=== PATIENT | male | born 1970 | race Caucasian/White ===

== ENCOUNTER 2017-02-17 12:39 | Day surgery (SDC) | payer BC ==
[~2017-02-17 12:39] MED LIST: ACETAMINOPHEN 1,000 MG/100 ML BTL IV ONE; CEFAZOLIN 2 Gram 2 GM/50 ML BAG IVPB ONE; FAMOTIDINE 20MG TABLET PO ONE; MECLIZINE 25 MG TABLET PO ONE; METOCLOPRAMIDE 10 MG TABLET PO ONE
[2017-02-17] MEDS ORDERED: MORPHINE SULFATE 5 MG/ML PFS IVP ONE (12:40)
[2017-02-17] MEDS ORDERED: ROCURONIUM BROMIDE 50MG/5ML VIAL IV ONE (12:40)
[2017-02-17] MEDS ORDERED: BUPIVACAINE 0.75% W/EPI MPF 30ML VIAL IVP ONE (12:40)
[2017-02-17] MEDS ORDERED: LIDOCAINE 2% MDV (20MG/ML) 20ML VIAL IV ONE (12:40)
[2017-02-17] MEDS ORDERED: SEVOFLURANE 250 ML INH ONE (12:40)
[2017-02-17] MEDS ORDERED: PROPOFOL 10 MG/ML VIAL IV ONE (12:40)
[2017-02-17] MEDS ORDERED: SUGAMMADEX SODIUM 200 MG/2 ML VIAL IV ONE (12:40)
[2017-02-17 12:59] LABS: HEMATOCRIT 44.9 % (42.0-52.0); HEMOGLOBIN 15.9 gm/dl (14.0-18.0); MEAN CELL VOLUME 87.2 fl (81-97); MEAN CORPUSCULAR HEMOGLOBIN 30.9 pg (27-33); MEAN CORPUSCULAR HGB CONC 35.4 g/dl (32-36); MEAN PLATELET VOLUME 10.2 fl (7.4-10.4); PLATELET COUNT 264 K/uL (130-400); RED BLOOD COUNT 5.15 M/uL (4.40-5.70); RED CELL DISTRIBUTION WIDTH 12.7 % (11.5-14.5); WHITE BLOOD COUNT W/O DIFF 6.7 K/uL (4.2-12.2)
[2017-02-17 13:15] LABS: BLOOD UREA NITROGEN 16 mg/dL (6-20); CREATININE 0.8 mg/dL (0.7-1.2); EST GLOMERULAR FILTRATION RATE > 60 mL/min; GLUCOSE,RANDOM 317 mg/dL (74-109)
--- NOTE | 2017-02-21 14:10 | Operative Note ---
DATE OF SURGERY: 02/17/2017 REFERRING PROVIDER: Isacc Hawkins DO PREOPERATIVE DIAGNOSIS: Incarcerated umbilical hernia. POSTOPERATIVE DIAGNOSIS: Incarcerated umbilical hernia. OPERATION: Open umbilical herniorrhaphy with mesh. DESCRIPTION: Patient is a 46-year-old male with pain and bulging in his periumbilical region. He was brought to the operating room and placed in the supine position where general anesthesia was administered per Department of Anesthesia. PROCEDURE: Patient's abdomen was prepped and draped in the usual sterile fashion. Adequate timeout was preformed. He did receive preoperative antibiotic. At this time, periumbilical region was anesthetized with a total of 5 mL of 0.25% Sensorcaine with epinephrine. A 4 cm curvilinear infraumbilical incision was made. This was carried down to the anterior rectus fascia. The umbilical stalk was encircled and dissected free from underlying hernia sac. Clean circumferential fascial edges were obtained. Patient had an incarcerated hernia containing fat. The sac was amputated and passed off the field. Hernia measured about 1.5 cm. At this time, an [address] mesh was obtained. This was placed in the intraperitoneal position. Sutures went in 6 spots. The tails overlapped the fascia where sutures were placed as well. At this time, the skin was tacked back down with 3-0 Vicryl, 4-0 Vicryl was then used to close the skin. Patient was then taken to the recovery room in satisfactory condition. FINDINGS AT TIME OF SURGERY: Incarcerated umbilical hernia repaired as above. CC: Isacc Hawkins DO [facility] CENTERMarcel
== END 2017-02-17 16:05 | disposition home or self-care (01) ==
LOC: SUR 12:39
PROVIDERS: ATTEND Surgery
DX: K42.0 Umbilical hernia with obstruction, without gangrene (principal); E78.00 Pure hypercholesterolemia, unspecified; E11.9 Type 2 diabetes mellitus without complications; Z79.4 Long term (current) use of insulin; Z79.84 Long term (current) use of oral hypoglycemic drugs; Z72.0 Tobacco use; F41.8 Other specified anxiety disorders; I10 Essential (primary) hypertension
CPT/HCPCS: 36416; 80048; 82948; 85027; 93005; 93010; J3490